=== PATIENT | male | born 1965 | race Caucasian/White ===

== ENCOUNTER 2016-10-26 00:06 | Observation (INO) | payer SELFPAY ==
[~2016-10-26] VITALS: Ht 180.3 cm; Wt 57.7 kg
[~2016-10-26 00:06] MED LIST: AMOXICILLIN/PO500 MG PO; AMOXICILLIN500 MG PO; ANAPROX275 MG OR; BACTRIM DS1 TAB PO; FLEXERIL OR; KEFLEX500 M1 PO; LOMOTIL2.5 MG OR; LORTAB 5 OR; LYPHOCIN1 GM IJ; NO HOME MEDS; NO HOMEMEDS; PERCOCET 5/325M1 TAB OR; PERCOCET 5/325M1 TAB PO; PROMETHAZINE25 M1 RE; TORADOL PO; ULTRAM50 M1 PO; VICODIN1 TAB OR
[2016-10-26 00:45] LABS: HEMOGLOBIN 15.2 g/dl (14.0-18.0); IMMATURE GRANULOCYTES 0.2 % (0.0-1.0); MEAN CELL VOLUME 89.2 fL CALC (80.0-100.0); MEAN CORPUSCULAR HGB 30.8 pG CALC (26.0-32.0); MEAN CORPUSCULAR HGB CONC 34.5 g/L CALC (32.0-36.0); NEUT# 3.76 thou/uL (1.82-7.42); RED BLOOD COUNT 4.93 mill/uL (4.70-6.10); RED CELL DISTRI WIDTH 15.1 % (11.5-15.5)
[2016-10-26 00:52] LABS: ALBUMIN 4.6 g/dL (3.2-5.0); ALKALINE PHOSPHATASE 69 u/l (38-126); ANION GAP 16 (6-22 (CALC)); BILIRUBIN, TOTAL 0.7 mg/dL (0.0-1.4); BUN 20 mg/dL (9-20); BUN/CREATININE RATIO 18 (12-20 (CALC)); CALCIUM 9.4 mg/dL (8.4-10.2); CARBON DIOXIDE 22 mmol/l (22-30); CHLORIDE 105 mmol/l (95-108); CREATININE 1.1 mg/dL (0.7-1.3); GFR > 60 ML/MIN (>=60 (CALC)); GFR FOR AFR.AMER. > 60 ML/MIN (>=60 (CALC)); GLUCOSE 91 mg/dL (75-110); POTASSIUM 3.8 mmol/l (3.5-5.1); SGOT/AST 28 u/l (17-59); SGPT/ALT 26 u/l (21-72); SODIUM 139 mmol/l (137-146); TOTAL PROTEIN 7.4 g/dL (6.3-8.2)
[2016-10-26 02:45] VITALS: BP 103/67
[2016-10-26 09:35] VITALS: BP 101/47
[2016-10-26 11:09] VITALS: BP 110/69
[2016-10-26 15:50] VITALS: BP 104/68
[2016-10-26 17:17] LABS: URINE BILIRUBIN - DIPSTICK NEGATIVE (NEGATIVE); URINE BLOOD DIPSTICK NEGATIVE (NEGATIVE); URINE CLARITY CLEAR; URINE COLOR YELLOW; URINE GLUCOSE - DIPSTICK NEGATIVE (NEGATIVE); URINE KETONE NEGATIVE (NEGATIVE); URINE LEUK ESTERASE NEGATIVE (NEGATIVE); URINE NITRITE - DIPSTICK NEGATIVE (Negative); URINE PH 6.5 (4.5-8.0); URINE PROTEIN - DIPSTICK NEGATIVE (NEG-TRACE); URINE SPECIFIC GRAVITY 1.025; URINE UROBILINOGEN - DIPSTICK 0.2 E.U./dL (0.2)
[2016-10-26 17:21] LABS: BARBITURATES NEGATIVE (NEGATIVE); COCAINE NEGATIVE (NEGATIVE); METHADONE NEGATIVE (NEGATIVE); OXCYCODONE NEGATIVE (NEGATIVE); TETRAHYDROCANNABIONOL POSITIVE (NEGATIVE); TRICYLIC ANTIDEPRESSANTS NEGATIVE (NEGATIVE)
[2016-10-26 19:10] VITALS: BP 103/65
[2016-10-27] VITALS: BP 111/69
[2016-10-27 04:18] VITALS: BP 96/61
[2016-10-27 07:54] VITALS: BP 101/63
[2016-10-27 11:38] VITALS: BP 134/82
[2016-10-27] MEDS ORDERED: MOTRIN800 MG PO (12:32)
[2016-10-27] MEDS ORDERED: PEPCID20 MG PO (12:32)
[2016-10-27] MEDS ORDERED: LORTAB 10-325 M1 TAB PO (12:32)
== END 2016-10-27 13:39 | disposition home or self-care (01) | DRG 312 ==
LOC: ED 00:06 → ED-I 00:26 → ED 00:26 → ED-I 01:20 → ED 02:15 → MS2 02:16
PROVIDERS: Emergency Medicine; ADMIT Internal Medicine; ATTEND Internal Medicine
DX: R55 Syncope and collapse (principal); R56.9 Unspecified convulsions; M47.816 Spondylosis without myelopathy or radiculopathy, lumbar region; F17.210 Nicotine dependence, cigarettes, uncomplicated; F12.90 Cannabis use, unspecified, uncomplicated; R13.10 Dysphagia, unspecified
CPT/HCPCS: G0378

== ENCOUNTER 2016-12-08 18:21 | Emergency (ER) | payer SELFPAY ==
[~2016-12-08] VITALS: Ht 180.3 cm; Wt 70.0 kg
[~2016-12-08 18:21] MED LIST changes: +LORTAB 10-325 M1 TAB PO; +MOTRIN800 MG PO; +PEPCID20 MG PO
[2016-12-08] MEDS ORDERED: LORTAB 10-325 M1 TAB PO (19:25)
[2016-12-08 19:34] VITALS: BP 103/74
[2016-12-09] MEDS ORDERED: AMOXICILLIN500 MG PO (00:53)
== END 2016-12-08 19:34 | disposition home or self-care (01) | DRG 605 ==
LOC: ED 18:21
DX: S60.032A Contusion of left middle finger without damage to nail, initial encounter (principal); M25.442 Effusion, left hand; S90.122A Contusion of left lesser toe(s) without damage to nail, initial encounter; W23.1XXA Caught, crushed, jammed, or pinched between stationary objects, initial encounter; Y92.9 Unspecified place or not applicable; M25.475 Effusion, left foot

== ENCOUNTER 2016-12-29 12:54 | Emergency (ER) | payer SELFPAY ==
[~2016-12-29] VITALS: Ht 180.3 cm; Wt 58.2 kg
[2016-12-29 14:24] LABS: HEMATOCRIT 40.2 % (39.0-50.0); HEMOGLOBIN 13.9 g/dl (14.0-18.0); IMMATURE GRANULOCYTES 0.1 % (0.0-1.0); MEAN CELL VOLUME 91.8 fL CALC (80.0-100.0); MEAN CORPUSCULAR HGB 31.7 pG CALC (26.0-32.0); MEAN CORPUSCULAR HGB CONC 34.6 g/L CALC (32.0-36.0); NEUT# 3.92 thou/uL (1.82-7.42); RED BLOOD COUNT 4.38 mill/uL (4.70-6.10); RED CELL DISTRI WIDTH 14.5 % (11.5-15.5)
[2016-12-29 15:48] LABS: ALBUMIN 4.5 g/dL (3.2-5.0); ALKALINE PHOSPHATASE 81 u/l (38-126); AMYLASE 74 u/l (30-110); ANION GAP 15 (6-22 (CALC)); BILIRUBIN, TOTAL 0.4 mg/dL (0.0-1.4); BUN 21 mg/dL (9-20); BUN/CREATININE RATIO 25 (12-20 (CALC)); CALCIUM 9.6 mg/dL (8.4-10.2); CARBON DIOXIDE 24 mmol/l (22-30); CHLORIDE 106 mmol/l (95-108); CREATININE 0.8 mg/dL (0.7-1.3); GFR > 60 ML/MIN (>=60 (CALC)); GFR FOR AFR.AMER. > 60 ML/MIN (>=60 (CALC)); GLUCOSE 91 mg/dL (75-110); LIPASE 217 u/l (23-300); POTASSIUM 4.3 mmol/l (3.5-5.1); SGOT/AST 22 u/l (17-59); SGPT/ALT 24 u/l (21-72); SODIUM 140 mmol/l (137-146); TOTAL PROTEIN 6.8 g/dL (6.3-8.2)
[2016-12-29 17:19] LABS: URINE BILIRUBIN - DIPSTICK NEGATIVE (NEGATIVE); URINE BLOOD DIPSTICK NEGATIVE (NEGATIVE); URINE CLARITY CLEAR; URINE COLOR YELLOW; URINE GLUCOSE - DIPSTICK NEGATIVE (NEGATIVE); URINE KETONE TRACE mg/dL (NEGATIVE); URINE LEUK ESTERASE NEGATIVE (NEGATIVE); URINE NITRITE - DIPSTICK NEGATIVE (Negative); URINE PH 6.5 (4.5-8.0); URINE PROTEIN - DIPSTICK NEGATIVE (NEG-TRACE); URINE UROBILINOGEN - DIPSTICK 0.2 E.U./dL (0.2)
[2016-12-29] MEDS ORDERED: CIPROFLOXACN500 MG PO (17:54)
[2016-12-29 18:20] VITALS: BP 111/63
== END 2016-12-29 18:20 | disposition home or self-care (01) | DRG 392 ==
LOC: ED 12:54
PROVIDERS: Emergency Medicine
DX: K52.9 Noninfective gastroenteritis and colitis, unspecified (principal); F17.210 Nicotine dependence, cigarettes, uncomplicated; R10.11 Right upper quadrant pain; R10.12 Left upper quadrant pain; R05 Cough
CPT/HCPCS: Q9967

== ENCOUNTER 2017-01-12 15:04 | Emergency (ER) | payer SELFPAY ==
[~2017-01-12] VITALS: Ht 180.3 cm; Wt 57.0 kg
[2017-01-12 15:04] VITALS: BP 114/81
[~2017-01-12 15:04] MED LIST changes: +CIPROFLOXACN500 MG PO
[2017-01-12] MEDS ORDERED: SEPTRA4001 PO (16:11)
[2017-01-13] MEDS ORDERED: BACTRIM DS1 TAB PO (03:51)
[2017-01-13] MEDS ORDERED: CIPROFLOXACN500 MG PO (03:51)
== END 2017-01-12 16:32 | disposition home or self-care (01) | DRG 605 ==
LOC: ED 15:04
DX: S91.332A Puncture wound without foreign body, left foot, initial encounter (principal); S40.811A Abrasion of right upper arm, initial encounter; S90.812A Abrasion, left foot, initial encounter; S40.812A Abrasion of left upper arm, initial encounter; W26.8XXA Contact with other sharp object(s), not elsewhere classified, initial encounter; Y92.22 Religious institution as the place of occurrence of the external cause

== ENCOUNTER 2017-01-13 03:24 | Emergency (ER) | payer SELFPAY ==
[~2017-01-13] VITALS: Ht 180.3 cm; Wt 55.0 kg
[~2017-01-13 03:24] MED LIST changes: +SEPTRA4001 PO
[2017-01-13] MEDS ORDERED: CIPROFLOXACN500 MG PO (03:51)
[2017-01-13] MEDS ORDERED: BACTRIM DS1 TAB PO (03:51)
[2017-01-13 04:06] VITALS: BP 112/72
== END 2017-01-13 04:25 | disposition home or self-care (01) | DRG 605 ==
LOC: ED 03:24
DX: S91.332A Puncture wound without foreign body, left foot, initial encounter (principal); F17.210 Nicotine dependence, cigarettes, uncomplicated; W22.8XXA Striking against or struck by other objects, initial encounter; Y92.89 Other specified places as the place of occurrence of the external cause

== ENCOUNTER 2017-03-09 12:24 | Emergency (ER) | payer SELFPAY ==
[~2017-03-09] VITALS: Ht 180.3 cm; Wt 50.0 kg
[2017-03-09 13:19] LABS: HEMATOCRIT 40.4 % (39.0-50.0); IMMATURE GRANULOCYTES 0.4 % (0.0-1.0); MEAN CELL VOLUME 91.4 fL CALC (80.0-100.0); MEAN CORPUSCULAR HGB 31.7 pG CALC (26.0-32.0); MEAN CORPUSCULAR HGB CONC 34.7 g/L CALC (32.0-36.0); NEUT# 7.8 thou/uL (1.82-7.42); RED BLOOD COUNT 4.42 mill/uL (4.70-6.10); RED CELL DISTRI WIDTH 13.3 % (11.5-15.5)
[2017-03-09 13:40] LABS: ALBUMIN 4.5 g/dL (3.2-5.0); ALKALINE PHOSPHATASE 101 u/l (38-126); ANION GAP 16 (6-22 (CALC)); BILIRUBIN, TOTAL 0.4 mg/dL (0.0-1.4); BUN 16 mg/dL (9-20); BUN/CREATININE RATIO 18 (12-20 (CALC)); CALCIUM 10.1 mg/dL (8.4-10.2); CARBON DIOXIDE 25 mmol/l (22-30); CHLORIDE 103 mmol/l (95-108); CREATININE 0.9 mg/dL (0.7-1.3); GFR > 60 ML/MIN (>=60 (CALC)); GFR FOR AFR.AMER. > 60 ML/MIN (>=60 (CALC)); GLUCOSE 100 mg/dL (75-110); LIPASE 163 u/l (23-300); POTASSIUM 4.3 mmol/l (3.5-5.1); SGOT/AST 20 u/l (17-59); SGPT/ALT 24 u/l (21-72); SODIUM 140 mmol/l (137-146); TOTAL PROTEIN 6.8 g/dL (6.3-8.2)
[2017-03-09 16:24] LABS: URINE BILIRUBIN - DIPSTICK NEGATIVE (NEGATIVE); URINE BLOOD DIPSTICK TRACE-INTACT (NEGATIVE); URINE CLARITY CLEAR; URINE COLOR YELLOW; URINE GLUCOSE - DIPSTICK NEGATIVE (NEGATIVE); URINE KETONE NEGATIVE (NEGATIVE); URINE LEUK ESTERASE NEGATIVE (NEGATIVE); URINE NITRITE - DIPSTICK NEGATIVE (Negative); URINE PH 6.5 (4.5-8.0); URINE PROTEIN - DIPSTICK NEGATIVE (NEG-TRACE); URINE SPECIFIC GRAVITY <=1.005
[2017-03-09] MEDS ORDERED: ZOFRAN4 M1 PO (16:31)
[2017-03-09 17:15] VITALS: BP 102/67
== END 2017-03-09 16:59 | disposition home or self-care (01) | DRG 392 ==
LOC: ED 12:24
PROVIDERS: Family Medicine
DX: K52.9 Noninfective gastroenteritis and colitis, unspecified (principal); R10.11 Right upper quadrant pain; R10.12 Left upper quadrant pain; R11.0 Nausea
CPT/HCPCS: Q9967

== ENCOUNTER 2017-08-03 01:43 | Emergency (ER) | payer SELFPAY ==
[~2017-08-03] VITALS: Ht 180.3 cm; Wt 63.6 kg
[~2017-08-03 01:43] MED LIST changes: +ZOFRAN4 M1 PO
[2017-08-03 02:31] LABS: HEMATOCRIT 42.6 % (39.0-50.0); HEMOGLOBIN 14.7 g/dl (14.0-18.0); IMMATURE GRANULOCYTES 0.3 % (0.0-1.0); MEAN CORPUSCULAR HGB 31.7 pG CALC (26.0-32.0); MEAN CORPUSCULAR HGB CONC 34.5 g/L CALC (32.0-36.0); NEUT# 6.25 thou/uL (1.82-7.42); RED BLOOD COUNT 4.63 mill/uL (4.70-6.10); RED CELL DISTRI WIDTH 13.8 % (11.5-15.5)
[2017-08-03 02:39] LABS: ALBUMIN 4.2 g/dL (3.2-5.0); ALKALINE PHOSPHATASE 92 u/l (38-126); AMYLASE 87 u/l (30-110); ANION GAP 18 (6-22 (CALC)); BILIRUBIN, TOTAL 0.2 mg/dL (0.0-1.4); BUN 24 mg/dL (9-20); BUN/CREATININE RATIO 26 (12-20 (CALC)); CARBON DIOXIDE 25 mmol/l (22-30); CHLORIDE 103 mmol/l (95-108); CREATININE 0.9 mg/dL (0.7-1.3); GFR > 60 ML/MIN (>=60 (CALC)); GFR FOR AFR.AMER. > 60 ML/MIN (>=60 (CALC)); LIPASE 122 u/l (23-300); POTASSIUM 3.7 mmol/l (3.5-5.1); SGOT/AST 15 u/l (17-59); SGPT/ALT 27 u/l (21-72); SODIUM 143 mmol/l (137-146); TOTAL PROTEIN 7.3 g/dL (6.3-8.2)
[2017-08-03 02:47] LABS: MYOGLOBIN 35 ng/mL (0 - 121)
[2017-08-03 02:48] LABS: ACT PARTIAL THROMBO TIME 26.8 SECONDS (20.0-32.5); D-DIMER 0.17 mg/L (0.19-0.60); INTERNATIONAL NORMALIZED RATIO 0.9 RATIO (0.7-1.3); PROTHROMBIN TIME 10.3 SECONDS (9.0-12.5)
[2017-08-03] MEDS ORDERED: TRAMADOL HCL50 MG PO (03:09)
[2017-08-03] MEDS ORDERED: VOLTAREN - GENE75 MG PO (03:09)
[2017-08-03 03:17] VITALS: BP 105/72
== END 2017-08-03 03:30 | disposition home or self-care (01) | DRG 313 ==
LOC: ED 01:43
PROVIDERS: Family Medicine
DX: R07.89 Other chest pain (principal); F17.290 Nicotine dependence, other tobacco product, uncomplicated; R05 Cough

== ENCOUNTER 2017-08-08 01:24 | Emergency (ER) | payer SELFPAY ==
[~2017-08-08] VITALS: Ht 180.3 cm; Wt 63.6 kg
[~2017-08-08 01:24] MED LIST changes: +TRAMADOL HCL50 MG PO; +VOLTAREN - GENE75 MG PO
[2017-08-08 02:16] LABS: HEMATOCRIT 40.4 % (39.0-50.0); IMMATURE GRANULOCYTES 0.3 % (0.0-1.0); MEAN CORPUSCULAR HGB 31.9 pG CALC (26.0-32.0); MEAN CORPUSCULAR HGB CONC 34.7 g/L CALC (32.0-36.0); NEUT# 7.91 thou/uL (1.82-7.42); RED BLOOD COUNT 4.39 mill/uL (4.70-6.10); RED CELL DISTRI WIDTH 13.7 % (11.5-15.5)
[2017-08-08 02:27] LABS: INFLUENZA A NONE DETECTED (NONE DETECT); INFLUENZA B NONE DETECTED (NONE DETECT)
[2017-08-08 02:29] LABS: ALKALINE PHOSPHATASE 98 u/l (38-126); ANION GAP 11 (6-22 (CALC)); BILIRUBIN, TOTAL 0.3 mg/dL (0.0-1.4); BUN 19 mg/dL (9-20); BUN/CREATININE RATIO 24 (12-20 (CALC)); CARBON DIOXIDE 26 mmol/l (22-30); CHLORIDE 103 mmol/l (95-108); CREATININE 0.8 mg/dL (0.7-1.3); GFR > 60 ML/MIN (>=60 (CALC)); GFR FOR AFR.AMER. > 60 ML/MIN (>=60 (CALC)); POTASSIUM 3.8 mmol/l (3.5-5.1); SGOT/AST 23 u/l (17-59); SGPT/ALT 26 u/l (21-72); SODIUM 136 mmol/l (137-146)
[2017-08-08 02:41] LABS: MYOGLOBIN 26 ng/mL (0 - 121)
[2017-08-08] MEDS ORDERED: ULTRAM50 M1 PO (02:58)
[2017-08-08] MEDS ORDERED: FLEXERIL PO (02:58)
[2017-08-08 04:00] VITALS: BP 106/65
== END 2017-08-08 04:00 | disposition home or self-care (01) | DRG 556 ==
LOC: ED 01:24
PROVIDERS: Emergency Medicine
DX: M79.7 Fibromyalgia (principal); Z87.891 Personal history of nicotine dependence

== ENCOUNTER 2017-08-15 10:53 | Observation (INO) | payer SELFPAY ==
[~2017-08-15] VITALS: Ht 180.3 cm; Wt 69.9 kg
[~2017-08-15 10:53] MED LIST changes: +FLEXERIL PO
[2017-08-15 11:33] LABS: HEMATOCRIT 44.7 % (39.0-50.0); HEMOGLOBIN 15.1 g/dl (14.0-18.0); IMMATURE GRANULOCYTES 0.3 % (0.0-1.0); MEAN CORPUSCULAR HGB 31.1 pG CALC (26.0-32.0); MEAN CORPUSCULAR HGB CONC 33.8 g/L CALC (32.0-36.0); NEUT# 7.99 thou/uL (1.82-7.42); RED BLOOD COUNT 4.86 mill/uL (4.70-6.10); RED CELL DISTRI WIDTH 13.6 % (11.5-15.5)
[2017-08-15 11:48] LABS: ANION GAP 12 (6-22 (CALC)); BUN 18 mg/dL (9-20); BUN/CREATININE RATIO 20 (12-20 (CALC)); CARBON DIOXIDE 28 mmol/l (22-30); CHLORIDE 102 mmol/l (95-108); CREATININE 0.9 mg/dL (0.7-1.3); GFR > 60 ML/MIN (>=60 (CALC)); GFR FOR AFR.AMER. > 60 ML/MIN (>=60 (CALC)); POTASSIUM 3.9 mmol/l (3.5-5.1); SODIUM 138 mmol/l (137-146)
[2017-08-15 15:37] LABS: CHOLESTEROL HDL RATIO 3.3 (<4.4 (CALC))
[2017-08-15 16:20] VITALS: BP 111/65
[2017-08-15 19:30] VITALS: BP 100/61
[2017-08-16 00:43] VITALS: BP 99/64
[2017-08-16 05:00] VITALS: BP 105/65
[2017-08-16 07:27] VITALS: BP 105/66
[2017-08-16] MEDS ORDERED: PEPCID20 MG PO (10:55)
[2017-08-16] MEDS ORDERED: IBUPROFEN600 MG PO (10:55)
[2017-08-16 11:15] VITALS: BP 96/61
== END 2017-08-16 14:52 | disposition home or self-care (01) | DRG 313 ==
LOC: ED 10:53 → ED-I 12:56 → ED 13:28 → MS2 13:29
PROVIDERS: Family Medicine; Nurse Practitioner Family; ADMIT Internal Medicine; ATTEND Internal Medicine
DX: R07.89 Other chest pain (principal); F17.210 Nicotine dependence, cigarettes, uncomplicated; G89.4 Chronic pain syndrome; M51.36 Other intervertebral disc degeneration, lumbar region; Z59.0 Homelessness
CPT/HCPCS: G0378

== ENCOUNTER 2017-08-25 02:20 | Emergency (ER) | payer SELFPAY ==
[~2017-08-25] VITALS: Ht 180.3 cm; Wt 63.6 kg
[~2017-08-25 02:20] MED LIST changes: +IBUPROFEN600 MG PO
[2017-08-25 03:03] LABS: HEMATOCRIT 44.5 % (39.0-50.0); IMMATURE GRANULOCYTES 0.4 % (0.0-1.0); MEAN CELL VOLUME 92.7 fL CALC (80.0-100.0); MEAN CORPUSCULAR HGB 31.3 pG CALC (26.0-32.0); MEAN CORPUSCULAR HGB CONC 33.7 g/L CALC (32.0-36.0); RED BLOOD COUNT 4.8 mill/uL (4.70-6.10); RED CELL DISTRI WIDTH 13.2 % (11.5-15.5)
[2017-08-25 03:23] LABS: ALBUMIN 4.5 g/dL (3.2-5.0); ALKALINE PHOSPHATASE 123 u/l (38-126); ANION GAP 13 (6-22 (CALC)); BILIRUBIN, TOTAL 0.3 mg/dL (0.0-1.4); BUN 19 mg/dL (9-20); BUN/CREATININE RATIO 21 (12-20 (CALC)); CARBON DIOXIDE 30 mmol/l (22-30); CHLORIDE 99 mmol/l (95-108); CREATININE 0.9 mg/dL (0.7-1.3); GFR > 60 ML/MIN (>=60 (CALC)); GFR FOR AFR.AMER. > 60 ML/MIN (>=60 (CALC)); POTASSIUM 3.8 mmol/l (3.5-5.1); SGOT/AST 40 u/l (17-59); SGPT/ALT 21 u/l (21-72); SODIUM 138 mmol/l (137-146)
[2017-08-25 03:36] LABS: MYOGLOBIN 26 ng/mL (0 - 121)
[2017-08-25] MEDS ORDERED: GABAPENTIN300 M2 PO (04:01)
[2017-08-25] MEDS ORDERED: FLEXERIL PO (04:03)
[2017-08-25 06:06] VITALS: BP 112/70
== END 2017-08-25 06:06 | disposition home or self-care (01) | DRG 204 ==
LOC: ED 02:20
PROVIDERS: Emergency Medicine
DX: R07.81 Pleurodynia (principal); F17.210 Nicotine dependence, cigarettes, uncomplicated
CPT/HCPCS: Q9967